=== PATIENT | female | born 1995 | race Caucasian/White ===

== ENCOUNTER 2022-01-14 10:16 | Outpatient (CLI) | payer BC | END 2022-01-14 10:17 | disposition home or self-care (01) | LOC: CSHLAB 10:16 | PROVIDERS: ATTEND Obstetrics & Gynecology | DX: Z20.822 Contact with and (suspected) exposure to COVID-19 (principal) | CPT/HCPCS: U0003; U0005 ==

== ENCOUNTER 2022-01-18 05:30 | Inpatient (IN) | payer BC ==
[~2022-01-18 05:30] MED LIST: Acetaminophen 500 MG TAB PO PRN; Butorphanol Tartrate 1 MG/ML VIAL SLOW IVP PRN; Carboprost 250 MCG/ML AMP IM PRN; Diphenoxylate HCl/Atropine Tablet PO PRN; Docusate 100 MG CAP PO PRN; HYDROcodone/Acetaminophen 5/325 mg Tablet PO PRN; Ibuprofen 800 MG TAB PO PRN; Lactated Ringer's 1,000 ML IV SCH; Lidocaine 1% (PF) 30 ML VIAL SC PRN; Misoprostol 100 MCG TAB VAG SCH; Misoprostol 200 MCG TAB PR PRN; NS w/ Oxytocin 30 units 500 ML IV SCH; Ondansetron PF 4 MG/2 ML Vial IVP PRN; Promethazine HCl 25 MG/ML VIAL IM PRN; hydrALAZINE 20 MG/ML VIAL SLOW IVP PRN
[2022-01-18] MEDS ORDERED: Misoprostol 100 MCG TAB ONE (06:48)
[2022-01-18] MEDS ORDERED: Bupivacaine/Epinephrine 0.25% 30 ML VIAL ONE (07:00)
[2022-01-18] MEDS ORDERED: ePHEDrine Sulfate 50 MG/10 ML VIAL ONE (07:00)
[2022-01-18 07:01] VITALS: BMI 29.5
[2022-01-18 07:20] LABS: Hemoglobin 13.4 g/dL (12.0-15.5); Mean Corpuscular HGB CONC 36.7 g/dL (32.0-36.0); Mean Corpuscular Hemoglobin 33.3 pg (27.0-33.0); Mean Corpuscular Volume 90.8 fl (81.6-98.3); Mean Platelet Volume 12.6 fl (7.4-10.4); Platelet Count 171 10x3/uL (150-450); RBC Distribution Width 12.1 % (11.5-14.5); Red Blood Cell (RBC) Count 4.02 10x6/uL (3.90-5.03); White Blood Cell (WBC) Count 8.2 10x3/uL (3.5-10.5)
[2022-01-18 07:37] LABS: ALT (SGPT) 8 U/L (8-55); AST (SGOT) 14 U/L (5-34); Albumin 3.2 g/dL (3.5-5.0); Alkaline Phosphatase 183 U/L (40-110); Anion Gap 16 mmol/L (10-20); BUN (Urea Nitrogen) 7 mg/dL (7.0-18.7); Bilirubin, Total 0.4 mg/dL (0.2-1.2); Calc. Creatinine Clearance 214 mL/min (70-130); Calcium 8.8 mg/dL (7.8-10.44); Carbon Dioxide 20 mmol/L (22-29); Chloride 107 mmol/L (98-107); Globulin 2.6 g/dL (2.4-3.5); Glucose 70 mg/dL (70-105); Potassium 3.8 mmol/L (3.5-5.1); Protein, Total 5.8 g/dL (6.0-8.3); Sodium 139 mmol/L (136-145)
[2022-01-18 07:55] LABS: Hep B Surf Ag Non-Reactive S/CO (NonReactive)
[2022-01-18 07:56] LABS: Syphilis Antibody Nonreactive (Nonreactive); Syphilis Antibody Index 0.03 S/CO (<1.00 Non-Reactive)
[2022-01-18 08:13] LABS: HBSAg Index 0.17 S/CO (0-0.99)
[2022-01-18] MEDS: NS w/ Oxytocin 30 units 500 ML IV SCH (15:27)
[2022-01-19] MEDS ORDERED: Fentanyl 2 mcg/Bup 0.1% Cadd 100 ML ONE (09:35)
[2022-01-19] MEDS ORDERED: ePHEDrine Sulfate 50 MG/10 ML VIAL SLOW IVP PRN (10:49)
[2022-01-19] MEDS ORDERED: Promethazine HCl 25 MG/ML VIAL IM PRN ×2 (10:49→13:50)
[2022-01-19] MEDS ORDERED: Lactated Ringer's 500 ML IV PRN (10:49)
[2022-01-19] MEDS ORDERED: diphenhydrAMINE 50 MG/ML VIAL IVP PRN (10:49)
[2022-01-19] MEDS ORDERED: Naloxone HCl 0.4 mg/ml Vial IVP PRN ×2 (10:49)
[2022-01-19] MEDS ORDERED: Acetaminophen 325 MG TAB PO PRN (10:49)
[2022-01-19] MEDS ORDERED: Moisturizing Cream (Eucerin) 113 GM JAR TOP PRN (10:49)
[2022-01-19] MEDS ORDERED: Ondansetron PF 4 MG/2 ML Vial IVP PRN ×2 (10:49→13:50)
[2022-01-19] MEDS ORDERED: Communication Order-Pharmacy FS SCH (11:00)
[2022-01-19] MEDS ORDERED: Fentanyl 2 mcg/Bupivacaine 0.1% Cassette 100 ML EPIDURAL SCH (11:00)
[2022-01-19] MEDS: NS w/ Oxytocin 30 units 500 ML IV SCH (13:05)
[2022-01-19] MEDS ORDERED: Benzocaine-Menthol 82.5 ML CAN TOP PRN (13:50)
[2022-01-19] MEDS ORDERED: Measles/Mumps/Rubella 10 MCG/0.5 ML VIAL SC ONE (13:50)
[2022-01-19] MEDS ORDERED: hydrALAZINE 20 MG/ML VIAL SLOW IVP PRN (13:50)
[2022-01-19] MEDS ORDERED: NS w/ Oxytocin 30 units 500 ML IV SCH (13:50)
[2022-01-19] MEDS ORDERED: Milk Of Magnesia 30 ML UDCUP PO PRN (13:50)
[2022-01-19] MEDS ORDERED: Boostrix 0.5 ML (Tdap) VIAL IM ONE (13:50)
[2022-01-19] MEDS ORDERED: Bisacodyl 10 MG SUPP PR PRN (13:50)
[2022-01-19] MEDS ORDERED: Lanolin Ointment 7 GM TUBE TOP PRN (13:50)
[2022-01-19] MEDS ORDERED: Zolpidem Tartrate 5 MG TAB PO PRN (13:50)
[2022-01-19] MEDS ORDERED: diphenhydrAMINE 25 MG CAP PO PRN (13:50)
[2022-01-19] MEDS ORDERED: Varicella virus, LIVE 0.5 ML VIAL SC ONE (13:50)
[2022-01-19] MEDS ORDERED: Preparation H Ointment 28 GM TUBE PR PRN (13:50)
[2022-01-19] MEDS ORDERED: HYDROcodone/Acetaminophen 5/325 mg Tablet PO PRN (13:50)
[2022-01-19] MEDS: Ibuprofen 800 MG TAB PO SCH ×3 (14:55→22:09)
[2022-01-19] MEDS: Ferrous Sulfate 325 MG TAB PO SCH (15:02)
[2022-01-19] MEDS: Docusate 100 MG CAP PO SCH (22:10)
[2022-01-20 05:33] LABS: Hemoglobin 12.5 g/dL (12.0-15.5); Mean Corpuscular HGB CONC 34.7 g/dL (32.0-36.0); Mean Platelet Volume 12.2 fl (7.4-10.4); Platelet Count 148 10x3/uL (150-450); RBC Distribution Width 12.1 % (11.5-14.5); Red Blood Cell (RBC) Count 3.79 10x6/uL (3.90-5.03)
[2022-01-20] MEDS: Ibuprofen 800 MG TAB PO SCH ×2 (05:43→14:31)
[2022-01-20] MEDS: Ferrous Sulfate 325 MG TAB PO SCH (07:27)
[2022-01-20] MEDS: Docusate 100 MG CAP PO SCH (08:45)
[2022-01-20] MEDS ORDERED: Prenatal Vitamin 1 TAB PO SCH (09:00)
[2022-01-20 11:26] VITALS: BP 122/76; TEMP 98.4
== END 2022-01-20 15:45 | disposition home or self-care (01) | DRG 807 ==
LOC: CSHLD 05:31 → CSHANTE 01-19 14:25
PROVIDERS: ADMIT Obstetrics & Gynecology; ATTEND Obstetrics & Gynecology
PROC: 10E0XZZ Delivery of Products of Conception, External Approach (ICD-10-PCS; principal; 2022-01-19)
DX: O13.4 Gestational [pregnancy-induced] hypertension without significant proteinuria, complicating childbirth (principal); Z37.0 Single live birth; O70.0 First degree perineal laceration during delivery; Z3A.37 37 weeks gestation of pregnancy; Z79.899 Other long term (current) drug therapy
CPT/HCPCS: 36415; 51702; 80053; 85027; 86780; 86850; 86900; 86901; 87340; J0595; J2590

== ENCOUNTER 2023-10-04 11:28 | Day surgery (SDC) | payer OTHER ==
[2023-10-03 11:27] VITALS: BMI 25.2
[2023-10-04] MEDS ORDERED: PROPOFOL 20 ML ONE (12:11)
[2023-10-04] MEDS ORDERED: fentaNYL 50 mcg/mL 1 mL Vial ONE ×3 (12:11→14:05)
[2023-10-04] MEDS ORDERED: Lidocaine 2% PF 5 ML VIAL ONE (12:11)
[2023-10-04] MEDS ORDERED: Ondansetron PF 4 MG/2 ML Vial ONE (12:11)
[2023-10-04] MEDS ORDERED: Dexamethasone 4 mg/ml Vial ONE (12:11)
[2023-10-04] MEDS ORDERED: Ketorolac Tromethamine 30 MG (1 mL) VIAL ONE (12:13)
[2023-10-04] MEDS ORDERED: Gabapentin 300 MG CAP ONE (12:14)
[2023-10-04] MEDS ORDERED: Acetaminophen 325 MG TAB ONE (12:14)
[2023-10-04] MEDS ORDERED: Vancomycin 1 GM VIAL ONE (12:15)
[2023-10-04] MEDS ORDERED: Bupivacaine PF 0.5% 30 ML VIAL ONE (12:15)
[2023-10-04] MEDS ORDERED: EPINEPHrine 1 MG/ML VIAL ONE (12:15)
[2023-10-04] MEDS ORDERED: Midazolam HCl 2 mg/2 ml Vial ONE (12:22)
[2023-10-04] MEDS ORDERED: Bupivacaine HCl 0.5%/Epinephrine 1:200,000/PF 30 ml Vial ONE (12:23)
[2023-10-04 12:27] LABS: Hematocrit 41.6 % (34.9-44.5); Hemoglobin 14.2 g/dL (12.0-15.5); Mean Corpuscular HGB CONC 34.1 g/dL (32.0-36.0); Mean Corpuscular Hemoglobin 31.7 pg (27.0-33.0); Mean Corpuscular Volume 92.9 fl (81.6-98.3); Mean Platelet Volume 10.6 fl (7.4-10.4); Platelet Count 258 10x3/uL (150-450); RBC Distribution Width 11.7 % (11.5-14.5); Red Blood Cell (RBC) Count 4.48 10x6/uL (3.90-5.03); White Blood Cell (WBC) Count 9.4 10x3/uL (3.5-10.5)
[2023-10-04] MEDS ORDERED: Lidocaine 1% PF 5 ML VIAL ONE (12:27)
[2023-10-04 12:43] LABS: Anion Gap 11 mmol/L (10-20); BUN (Urea Nitrogen) 9 mg/dL (7.0-18.7); Calc. Creatinine Clearance 155 mL/min (70-130); Calcium 9.2 mg/dL (7.8-10.44); Carbon Dioxide 26 mmol/L (22-29); Chloride 107 mmol/L (98-107); Estimated GFR 122; Glucose 89 mg/dL (70-105); Potassium 3.7 mmol/L (3.5-5.1); Sodium 140 mmol/L (136-145)
[2023-10-04 12:45] LABS: BHCG - Serum Negative (NEGATIVE); Pregs Control Bar Appear? YES (CONTROL BAR)
[2023-10-04 12:46] LABS: Pregs Control Background? CLEAR/WHITE (CLR/WHITE)
[2023-10-04] MEDS ORDERED: CEFAZOLIN 2 GM VIAL ONE (13:21)
[2023-10-04] MEDS ORDERED: Tranexamic Acid 1,000 MG/10 ML VIAL ONE (13:25)
[2023-10-04] MEDS ORDERED: Sevoflurane 250 ML INH ANEST BOTTLE ONE (14:14)
[2023-10-04] MEDS ORDERED: Meperidine HCl/PF 25 MG (1 mL) VIAL ONE (15:06)
[2023-10-04] MEDS ORDERED: HYDROcodone/Acetaminophen 5/325 mg Tablet ONE (15:54)
== END 2023-10-04 16:30 | disposition home or self-care (01) ==
LOC: CSHSDC 11:28
PROVIDERS: ATTEND Orthopaedic Surgery
PROC: 0SQD4ZZ Repair Left Knee Joint, Percutaneous Endoscopic Approach (ICD-10-PCS; principal; 2023-10-04)
PROC: 0SBD4ZZ Excision of Left Knee Joint, Percutaneous Endoscopic Approach (ICD-10-PCS; principal; 2023-10-04)
PROC: 0MRP47Z Replacement of Left Knee Bursa and Ligament with Autologous Tissue Substitute, Percutaneous Endoscopic Approach (ICD-10-PCS; principal; 2023-10-04)
DX: S83.512A Sprain of anterior cruciate ligament of left knee, initial encounter (principal); S83.282A Other tear of lateral meniscus, current injury, left knee, initial encounter; S83.242A Other tear of medial meniscus, current injury, left knee, initial encounter; X50.1XXA Overexertion from prolonged static or awkward postures, initial encounter
CPT/HCPCS: 36415; 80048; 82306; 84703; 85027; C1713; J0171; J0665; J1100; J1885; J2001; J2175; J2250; J2405; J2704; J3010; J3370